=== PATIENT | female | born 1965 | race Hispanic/Latino ===

== ENCOUNTER → 2020-09-13 16:46 | Outpatient (CLI) | payer OTHER, SELFPAY ==
[2020-09-13] MEDS: COVID-19 VACC #1, MRNA(MOD) 100 MCG/0.5 ML VIAL IM (16:56)
== END ==
PROVIDERS: Visit Provider Internal Medicine
DX: Z23 Encounter for immunization (principal)
CPT/HCPCS: 0011A; 91301

== ENCOUNTER → 2020-10-12 16:20 | Outpatient (CLI) | payer OTHER, SELFPAY ==
[2020-10-12] MEDS: COVID-19 VACC #2, MRNA(MOD) 100 MCG/0.5 ML VIAL IM (16:28)
== END ==
PROVIDERS: Visit Provider Internal Medicine
DX: Z23 Encounter for immunization (principal)
CPT/HCPCS: 0012A; 91301

== ENCOUNTER 2022-06-08 08:25 | Emergency (ER) | payer OTHER, SELFPAY ==
[2022-06-08 09:05] VITALS: BP 101/54; PULSE 80; RESP 19; TEMP 36.1; O2SAT 97
[2022-06-08 10:01] LABS: Influenza A - CEPHEID Flu A NEGATIVE (NEGATIVE); Influenza B - CEPHEID Flu B NEGATIVE (NEGATIVE); Respiratory Syncytial Virus Negative (Negative)
[2022-06-08 10:05] LABS: COVID-19 CEPHEID 4-PLEX PCR POSITIVE (Negative)
[2022-06-08 10:49] VITALS: BP 118/56; PULSE 75; RESP 18; TEMP 37; O2SAT 97
[2022-06-08] MEDS: ACETAMINOPHEN 325 MG TABLET 650 MG PO (10:53)
--- NOTE | 2022-06-08 18:37 | ED_ITS ---
HPI - URI/Sore Throat General Chief Complaint: Upper Respiratory Symptoms Stated Complaint: sore throat, fever Time Seen by Provider: 06/08/22 08:30 Source: billiard table mechanic Mode of arrival: Ambulatory History of Present Illness HPI Narrative: 57F non smoker without chronic medical history presents with a chief complaint of a proximally 4 days of typical upper respiratory symptoms including mild headache, nasal congestion, sore throat and a dry hacking cough. She is had low-grade subjective fever and body aches. She is Welsh-speaking and all elements of history as well as discharge instructions and disposition performed with Welsh-speaking billiard table mechanic at the bedside. She denies chest pain or any significant shortness of breath. She has been minimally nauseated but denies vomiting or diarrhea. She denies any dysuria, frequency or urgency Related Data Previous Rx's Medication Instructions Recorded benzonatate 200 mg capsule 200 mg PO BID PRN cough #20 caps 06/08/22 ondansetron 4 mg disintegrating 4 mg PO TID-QID PRN nausea and 06/08/22 tablet vomiting #10 tabs Allergies Allergy/AdvReac Type Severity Reaction Status Date / Time No Known Drug Allergies Allergy Verified 06/08/22 09:13 Review of Systems Review of Systems Narrative: GENERAL: See HPI HEENT: See HPI RESPIRATORY: See HPI CARDIOVASCULAR: Denies chest pain, palpitations, orthopnea, edema, GASTROINTESTINAL: Denies nausea, vomiting, abdominal pain, diarrhea, constipation, melena. : Denies dysuria, frequency, incontinence, hematuria, urinary retention. MUSCULOSKELETAL: denies weakness, joint pain, or bony pain SKIN: Denies rash, skin lesions, or other NEUROLOGIC: Denies weakness, headache, numbness, change in speech, confusion, seizures, incoordination. PSYCHIATRIC: No concerning psychosocial issues. 12 point review of systems is negative except for those stated above Patient History Social History Smoking Status: Never smoker Smoking Status: Never smoker alcohol intake frequency: 0-2 drinks per day Substance Use Type: does not use Exam Narrative Exam Narrative: GENERAL: [57] year old patient appears stated age. Well-developed patient, in mild distress. HEAD: Atraumatic. Normocephalic. EYES: Pupils equal round and reactive. Extraocular motions intact. No scleral icterus. No injection or drainage. ENT: Nose without bleeding, purulent drainage. Throat without erythema, tonsillar hypertrophy or exudate. Airway patent. NECK: Trachea midline. Non tender CARDIOVASCULAR: Regular rate and rhythm without murmurs, gallops, or rubs. RESPIRATORY: Clear to auscultation. Breath sounds equal bilaterally. No wheezes, rales, or rhonchi. GASTROINTESTINAL: Abdomen soft, non-tender, nondistended. EXTREMITIES: No edema or joint tenderness. BACK: Nontender without deformity or crepitance. No flank tenderness. NEURO: AOx3. SKIN: No rash or erythema of visible areas Initial Vital Signs Initial Vital Signs: Vital Signs Temperature 97.0 F L 06/08/22 09:05 Pulse Rate 80 06/08/22 09:05 Respiratory Rate 19 06/08/22 09:05 Blood Pressure 101/54 L 06/08/22 09:05 Pulse Oximetry 97 06/08/22 09:05 Oxygen Delivery Method 06/08/22 09:05 Course Orders Ordered: Discontinued Medications Acetaminophen (Acetaminophen 325 Mg Tablet) 650 mg PO NOW ONE Stop: 06/08/22 10:38 Last Admin: 06/08/22 10:53 Dose: 650 mg Documented By: GENNA Vital Signs Vital signs: Vital Signs - 8 hr 06/08/22 10:49 Temperature 98.6 F Pulse Rate 75 Respiratory Rate 18 Blood Pressure 118/56 L Pulse Oximetry 97 Oxygen Delivery Method Room Air MDM - URI/Sore Throat Lab Data Labs: Lab Results 06/08/22 Range/Units 09:00 SARS-CoV-2 (PCR) Positive H (Negative) Influenza A (RT-PCR) Flu a negative (NEGATIVE) Influenza B (RT-PCR) Flu b negative (NEGATIVE) RSV (PCR) Negative (Negative) Point of Care Testing Rapid Strep A Negative Discharge Plan Departure Patient Disposition: Home Clinical Impression: COVID-19 Instructions: COVID-19 Activity Restrictions/Additional Instructions: *You have been diagnosed with [ COVID-19] *What to do: ?* per recommendations from the CDC and the [facility] Department of Health ?* stay home except to get medical care. ?Restrict activities outside your home, except for getting medical care. ?Do not go to work, school, or public areas. ?Avoid using public transportation, ride sharing, or taxis. ?* separate yourself from other people in your home. ?* call ahead before visiting your doctor ?* Wear a facemask ?* Cover your coughs and sneezes ?* Clean your hands often ?* Avoid sharing household items ?* Clean all high-touch services every day ?* Monitor your symptoms and seek prompt medical attention if your illness is worsening, particularly with difficulty in breathing. You may discontinue your isolation when: ?1. You have been fever-free for at least 24 hours without the use of fever reducing medication, AND ?2. Your symptoms are getting better, AND ?3. At least 5 days have passed since symptoms first appeared ?4. If you have fever, continue to stay home until fever resolves Individuals with laboratory confirmed COVID-19 who have not had any symptoms may discontinue home isolation when at least 5 days have passed since the date of their first COVID-19 diagnostic test and have had no subsequent illness You should notifiy any friends and family that have been in close contact *If up to date on COVID Vaccines, then they do not need to quarantine unless symptoms develop. Get tested on day 5 (or sooner if symptoms develop). Take precautions and watch for symptoms until day 10 *If NOT up to date on COVID Vaccines, then CDC recommends quarantine for at least 5 full days. Wear a well fitted mask at home if you must be around others. If they ?develop symptoms they should get tested. If they remain asymptomatic they should get tested on day 5. They should take precautions and monitor for symptoms until day 10. Prescriptions: New benzonatate 200 mg capsule 200 mg PO BID PRN (Reason: cough) Qty: 20 0RF ondansetron 4 mg tablet,disintegrating 4 mg PO TID-QID PRN (Reason: nausea and vomiting) Qty: 10 0RF Stand Alone Forms: Work Release Note Visit Report Forms: Patient Portal/API
== END 2022-06-08 10:57 | disposition home or self-care (01) ==
PROVIDERS: Emergency Provider Emergency Medicine
DX: U07.1 COVID-19 (principal)
CPT/HCPCS: 0241U; 87070; 87147; 87880; 99283

== ENCOUNTER 2024-04-29 16:48 | Emergency (ER) | payer OTHER, SELFPAY ==
[2024-04-29 17:01] VITALS: BP 112/60; PULSE 69; RESP 17; TEMP 36.6; O2SAT 98
--- NOTE | 2024-04-29 18:22 | ED.FALL ---
HPI - Fall General Chief Complaint: Fall Stated Complaint: fell and hit head at work Time Seen by Provider: 04/29/24 17:54 Source: patient Mode of arrival: Ambulatory Limitations: language barrier History of Present Illness HPI Narrative: 59-year-old female. Is Slovenian-speaking only. Language line interpretation was used. Is here for evaluation of injuries that she sustained when she was at work. 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 Slipped on the ground. Fell backwards. Did not land on her buttocks and lower back and did hit her head. No loss of consciousness. No midline neck pain. Has been ambulatory since the event. No vomiting. Has not tried anything for the symptoms prior to arrival. No extremity injuries. Related Data Previous Rx's Medication Instructions Recorded benzonatate 200 mg capsule 200 mg PO BID PRN cough #20 caps 06/08/22 ondansetron 4 mg disintegrating 4 mg PO TID-QID PRN nausea and 06/08/22 tablet vomiting #10 tabs Allergies Allergy/AdvReac Type Severity Reaction Status Date / Time No Known Drug Allergies Allergy Verified 04/29/24 17:24 Review of Systems Review of Systems ROS Unobtainable: All systems reviewed & are unremarkable except as noted in HPI and below Patient History Social History Smoking Status: Never smoker Smoking Status: Never smoker alcohol intake frequency: 0-2 drinks per day Substance Use Type: does not use Exam Initial Vital Signs Initial Vital Signs: Vital Signs Temperature 98 F 04/29/24 17:01 Pulse Rate 69 04/29/24 17:01 Respiratory Rate 17 04/29/24 17:01 Blood Pressure 112/60 04/29/24 17:01 Pulse Oximetry 98 04/29/24 17:01 Oxygen Delivery Method Room Air 04/29/24 17:01 Const General: cooperative, comfortable and No ill appearing HENMT Head: normal to inspection, normocephalic, No contusion and No laceration Resp Effort & Inspection: normal respiratory effort Cardio Rate: regular rate Back/Spine/Pelvis Cervical Spine: cervical muscular tenderness and No cervical spinal tenderness Thoracic/Lumbar Spine: paraspinal tenderness, No thoracic spinal tenderness and lumbar spinal tenderness Sacroiliac Joints: tender to palpation Skin General: no rashes or lesions noted Neuro General: patient alert, patient awake and moves all extremities Extrem General: normal to inspection and capillary refill normal Scores Dutch CT Head Rule Age <16 years old: No Patient on blood thinners: No Seizure after injury: No Exclusion: Patient NOT Excluded, Proceed to next steps GCS < 15 at 2 hr post trauma: No Suspected open or depressed skull fracture: No Any sign of basilar skull fracture (hemotympanum, raccoon eyes, Benjamin's sign, CSF denise-/rhinorrhea): No Two or more episodes of vomiting: No Age greater or equal to 65 years: No Retrograde amnesia to the event greater or equal to 30 min: No Dangerous Mechanism (pedestrian vs. mv, occupant ejected from mv, fall from >3 ft or > 5 stairs): No Recommendation: CT unnecessary Nexus Score for C-Spine Focal Neurologic deficit present: No Midline spinal tenderness present: No Altered level of conciousness present: No Intoxication present: No Distracting Injury Present: No Nexus Criteria for C-spine: 0 Course Orders Ordered: ED Orders 04/29/24 18:23 XR lumbar spine 2-3V Stat XR sacrum coccyx min 2V Stat Vital Signs Vital signs: Vital Signs - 8 hr 04/29/24 17:01 04/29/24 20:18 Temperature 98 F Pulse Rate 69 61 Respiratory Rate 17 16 Blood Pressure 112/60 137/72 Pulse Oximetry 98 99 Oxygen Delivery Method Room Air Room Air MDM - Fall Imaging Data Lumbar spine x-ray: Radiologist's Impression: PROCEDURE: XR LUMBAR SPINE 2-3V INDICATIONS: lower back pain after fall TECHNIQUE: 3 views of the lumbar spine were acquired. COMPARISON: None. FINDINGS: Bones: 5 [id number] vertebrae are present. Mild levoconvex curvature lumbar spine. Multilevel degenerative changes and inferior lumbar facet arthropathy. No vertebral body compression fractures. No suspicious bony lesions. Soft tissues: Overlying bowel gas pattern is normal. No suspicious soft tissue calcifications. IMPRESSION: No acute fracture or traumatic subluxation. Multilevel degenerative changes. If symptoms persist with conservative management, consider cross-sectional imaging such as CT or MRI. Sacrum x-ray: Radiologist's Impression: PROCEDURE: XR SACRUM COCCYX MIN 2V INDICATIONS: lower back pain after fall TECHNIQUE: 3 views of the sacrum and coccyx acquired. COMPARISON: None. FINDINGS: Bones: No definite acute fracture identified.. No suspicious bony lesions. Soft tissues: Visualized bowel gas pattern is normal. No suspicious soft tissue densities. IMPRESSION: No acute radiographic abnormality. If symptoms persist with conservative management, consider cross-sectional imaging such as CT or MRI. [facility] Narrative Medical decision making narrative: No depressed skull fracture felt. GCS of 15. No midline neck pain. Cervical spine cleared by nexus criteria. Dutch C-spine we will does not recommend head CT. X-rays of lumbar spine and sacrum are unremarkable. No extremity injuries noted. Suspect symptoms will improve over the next couple days. Recommended conservative measures for now. Discussed this with the patient. She expressed understanding and agreement with plan. Discharge Plan Departure Patient Disposition: Home Clinical Impression: Lower back pain, Closed head injury Instructions: Low Back Pain Activity Restrictions/Additional Instructions: You can take Tylenol and/or ibuprofen for any discomfort. Return to the emergency department for new symptoms. Prescriptions: No Action benzonatate 200 mg capsule 200 mg PO BID PRN (Reason: cough) Qty: 20 0RF ondansetron 4 mg tablet,disintegrating 4 mg PO TID-QID PRN (Reason: nausea and vomiting) Qty: 10 0RF Stand Alone Forms: Patient Portal/API/Survey, Work Release Note
[2024-04-29 20:18] VITALS: BP 137/72; PULSE 61; RESP 16; O2SAT 99
== END 2024-04-29 20:28 | disposition home or self-care (01) ==
PROVIDERS: Emergency Provider Emergency Medicine
DX: S09.90XA Unspecified injury of head, initial encounter (principal); M54.50 Low back pain, unspecified; W01.0XXA Fall on same level from slipping, tripping and stumbling without subsequent striking against object, initial encounter
CPT/HCPCS: 72100; 72220; 99281; 99283